=== PATIENT | male | born 1965 | race Caucasian/White ===

== ENCOUNTER 2021-04-05 09:37 | Emergency (ER) | payer OTHER ==
[~2021-04-05] VITALS: Ht 165.1 cm; Wt 69.5 kg
[2021-04-05 09:55] VITALS: BP 108/64
--- NOTE | 2021-04-05 10:28 | PHYS DOC ---
Past History Additional Past Medical Histor: RECENT COVID19 (SAUNDRA ROMERO APRN) Past Surgical History: Other Additional Past Surgical Histo: LEFT FINGER (SAUNDRA ROMERO APRN) Alcohol Use: None (SAUNDRA ROMERO APRN) General Adult EDM: Chief Complaint: OTHER COMPLAINTS HPI: HPI: Patient is a 55-year-old male presents with weakness. Patient states "I had Covid on the eighth and this is my first week back to school". "I am a assistant baseball coach and all the parents keep telling me that I am not acting like myself, I just feel like my stamina has decreased". "I feel a lot better than I did and felt like improving". Patient denies shortness of breath. Denies fever. Denies pain. Patient is hemodynamically stable. (SAUNDRA ROMERO APRN) Review of Systems: Review of Systems: Constitutional: Denies fever or chills Eyes: Denies change in visual acuity HENT: Denies nasal congestion or sore throat Respiratory: Denies cough or shortness of breath Cardiovascular: Denies chest pain or edema GI: Denies abdominal pain, nausea, vomiting, bloody stools or diarrhea : Denies dysuria Musculoskeletal: Denies back pain or joint pain Integument: Denies rash Neurologic: Denies headache, focal weakness or sensory changes Endocrine: Denies polyuria or polydipsia Lymphatic: Denies swollen glands Psychiatric: Denies depression or anxiety (SAUNDRA ROMERO APRN) Allergies: Allergies: Allergies Coded Allergies Type Severity Reaction Last Updated Verified No Known Drug Allergies 04/05/21 No (SAUNDRA ROMERO APRN) Physical Exam: PE: Constitutional: Well developed, well nourished, no acute distress, non-toxic appearance. [] HENT: Normocephalic, atraumatic, bilateral external ears normal, oropharynx moist, no oral exudates, nose normal. [] Eyes: PERRLA, EOMI, conjunctiva normal, no discharge. [] Neck: Normal range of motion, no tenderness, supple, no stridor. [] Cardiovascular:Heart rate regular rhythm, no murmur [] Lungs & Thorax: Bilateral breath sounds clear to auscultation [] Abdomen: Bowel sounds normal, soft, no tenderness, no masses, no pulsatile masses. [] Skin: Warm, dry, no erythema, no rash. [] Back: No tenderness, no CVA tenderness. [] Extremities: No tenderness, no cyanosis, no clubbing, ROM intact, no edema. [] Neurologic: Alert and oriented X 3, normal motor function, normal sensory function, no focal deficits noted. [] Psychologic: Affect normal, judgement normal, mood normal. [] (SAUNDRA ROMERO APRN) Current Patient Data: Vital Signs: Vital Signs Date Time Temp Pulse Resp B/P (MAP) Pulse Ox O2 Delivery O2 Flow Rate FiO2 04/05/21 09:55 97.9 75 20 108/64 94 Room Air (SAUNDRA ROMERO APRN) EKG: EKG: [] (SAUNDRA ROMERO APRN) Radiology/Procedures: Radiology/Procedures: [] (SAUNDRA ROMERO APRN) Heart Score: C/O Chest Pain: No Risk Factors: Risk Factors: DM, Current or recent (<one month) smoker, HTN, HLP, family history of CAD, obesity. Risk Scores: Score 0 - 3: 2.5% MACE over next 6 weeks - Discharge Home Score 4 - 6: 20.3% MACE over next 6 weeks - Admit for Clinical Observation Score 7 - 10: 72.7% MACE over next 6 weeks - Early Invasive Strategies (SAUNDRA ROMERO APRN) Course & Med Decision Making: Course & Med Decision Making Pertinent Labs and Imaging studies reviewed. (See chart for details) [] Nontoxic appearing, 55-year-old male presents with a decrease in stamina. Patient reports that he was diagnosed on the eighth with Covid and just went back this week to school. Patient states that some of the mom's of the kids he coaches were concerned he did not seem like he had as much stamina as usual. Patient is hemodynamically stable. Patient denies all complaints. Explained to patient that it is going to take time to get his stamina back. Gave patient incentive spirometer and had RN explained how to use at home. Suggested getting a pulse oximeter to monitor her oxygen level. Advised patient to drink plenty of fluids and take ibuprofen and Tylenol for any discomfort or fevers he may h ave. Gave patient strict return precautions. Patient states he agrees with discharge plan and is appreciative. (SAUNDRA ROMERO APRN) Eddie Disclaimer: Eddie Disclaimer: This electronic medical record was generated, in whole or in part, using a voice recognition dictation system. (SAUNDRA ROMERO APRN) Departure Departure: Impression: Primary Impression: Persistent fatigue after COVID-19 Disposition: 01 HOME / SELF CARE / HOMELESS Condition: STABLE Referrals: LINDSAY GORDON (PCP) Patient Instructions: Fatigue Additional Instructions: You were seen in the emergency room for fatigue and decrease in stamina since Covid diagnosed. This can take you some time to get your energy back especially since you just started back at work. Make sure that you are drinking plenty of fluids. I am giving you an incentive spirometer to use at home to help prevent pneumonia. You can also purchase a pulse oximeter at your local pharmacy to monitor oxygen level at home. Take Tylenol and ibuprofen for discomfort. Follow-up with your PCP. Return to the emergency room if you have any worsening symptoms or concerns. EMERGENCY DEPARTMENT GENERAL DISCHARGE INSTRUCTIONS Thank you for coming to [facility] (ED) today and trusting us with you care. We trust that you had a positivie experience in our Emergency Department. If you wish to speak to the department management, you may call the director at . YOUR FOLLOW UP INSTRUCTIONS ARE FOLLOWS: 1. Do you have a private Doctor? If you do not have a private doctor, please ask for a resource list of physicians or clinics that may be able to assist you with follow up care. 2. The Emergency Physician has interpreted your x-rays. The X-Ray specialist will also review them. If there is a change in the findings, you will be notified in 48 hours when at all possible. 3. A lab test or culture has been done, your results will be reviewed and you will be notified if you need a change in treatment. ADDITIONAL INSTRUCTIONS AND INFORMATION: 1. Your care today has been supervised by a physician who is specially trained in emergency care. Many problems require more than one evaluation for a complete diagnosis and treatment. We recommend that you schedule your follow up appointment as recommended to ensure complete treatment of you illness or injury. If you are unable to obtain follow up care and continue to have a problem, or if your condition worsens, we recommend that you return to the ED. 2. We are not able to safely determine your condition over the phone nor are we able to give sound medical advice over the phone. For these safety reasons, if you call for medical advice we will ask you to come to the ED for further evaluation. 3. If you have any questions regarding these discharge instructions please call the ED at [phone]. SAFETY INFORMATION: In the interest of safety, wellness, and injury prevention; we encourage you to wear your sealbelt, if you smoke; quite smoking, and we encourage family to use a protective helmet for bicycling and other sporting events that present an increased risk for head injury. IF YOUR SYMPTOMS WORSEN OR NEW SYMPTOMS DEVELOP, OR YOU HAVE CONCERNS ABOUT YOUR CONDITION; OR IF YOUR CONDITION WORSENS WHILE YOU ARE WAITING FOR YOUR FOLLOW UP APPOINTMENT; EITHER CONTACT YOUR PRIMARY CARE DOCTOR, THE PHYSICIAN WHOSE NAME AND NUMBER YOU WERE GIVEN, OR RETURN TO THE ED IMMEDIATELY. Attending Signature Attending Signature I have reviewed the PA/WAITER AND CASHIER's note and plan of care. I was available for consultation as needed during the patient's visit in the emergency department. I agree with the clinical impression, plan, and disposition. (LANNY ZIMMER DO) SAUNDRA ROMERO APRN Apr 05, 2021 10:28 LANNY ZIMMER DO Apr 05, 2021 23:06
== END 2021-04-05 10:35 | disposition home or self-care (01) ==
LOC: ER 09:37
DX: R53.83 Other fatigue (principal); R53.1 Weakness; Z86.16 Personal history of COVID-19
CPT/HCPCS: 99282